=== PATIENT | female | born 1950 | race Caucasian/White ===

== ENCOUNTER → 2023-10-08 14:26 | Outpatient (REF) | payer OTHER, SELFPAY | LOC: MRI 3T 14:26 | PROVIDERS: ATTENDING PHYSICIAN Physician Assistant | DX: M54.16 Radiculopathy, lumbar region (principal) | CPT/HCPCS: 72148 ==

== ENCOUNTER 2024-10-17 21:17 | Emergency (ER) | payer OTHER, SELFPAY ==
[2024-10-17 21:30] VITALS: BP 187/103
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
[2024-10-17 22:01] VITALS: BMI 45.6
[2024-10-17 22:04] VITALS: BP 147/82
[2024-10-17 22:07] LABS: Hematocrit 41.9 % (37.0-47.0); Hemoglobin 13.9 g/dL (12.0-16.0); Mean Corp Hgb Conc. 33.2 g/dL (33.0-37.0); Mean Corpuscular Volume 85.7 fL (81.0-99.0); Nucleated Red Blood Cells % 0 %; Platelet Count 148 10^3/uL (130-400); Red Cell Dist. Width 13.5 % (11.5-14.5)
[2024-10-17] MEDS: NSS 500 IV (22:07)
[2024-10-17] MEDS: ZOFRAN 4 MG IV (22:11)
[2024-10-17 22:30] LABS: ALT (SGPT) 13 U/L (0-35); AST (SGOT) 19 U/L (14-36); Albumin 4.3 g/dl (3.5-5.0); Alkaline Phosphatase 67 U/L (38-126); Blood Urea Nitrogen 20 mg/dl (7-17); Calcium 9.8 mg/dl (8.4-10.2); Carbon Dioxide 29 mmol/L (22-30); Chloride 102 mmol/L (98-107); Estimated Creatinine Clearance 62 ml/min; Glucose 129 mg/dl (70-99); Lipase 89 U/L (23-300); Potassium 4.0 mmol/L (3.5-5.1); Sodium 137 mmol/L (135-145); Total Protein 7.4 g/dl (6.3-8.2); eGFR 53.06
[2024-10-17 22:42] LABS: Troponin I < 0.012 ng/ml
[2024-10-17] MEDS: TYLENOL 650 MG PO (23:03)
[2024-10-18 00:08] VITALS: BP 123/107
[2024-10-18 00:50] LABS: Urine Character Clear (Clear)
[2024-10-18 00:58] LABS: Urine Red Blood Cell 0-2 /HPF (0-2); Urine White Cell None Seen /HPF (0-5)
[2024-10-18 01:00] VITALS: BP 116/72
[2024-10-18 02:20] VITALS: BP 113/67
== END 2024-10-18 02:31 | disposition home or self-care (01) ==
LOC: EMR 21:17
PROVIDERS: Physician Assistant; EMERGENCY PHYSICIAN Emergency Medicine; FAMILY PHYSICIAN Internal Medicine
DX: K52.9 Noninfective gastroenteritis and colitis, unspecified (principal); E03.9 Hypothyroidism, unspecified; E78.00 Pure hypercholesterolemia, unspecified; G47.33 Obstructive sleep apnea (adult) (pediatric); I10 Essential (primary) hypertension; J45.909 Unspecified asthma, uncomplicated; Z59.11 Inadequate housing environmental temperature; Z85.3 Personal history of malignant neoplasm of breast; Z90.13 Acquired absence of bilateral breasts and nipples
CPT/HCPCS: 96374; 96361; 99284; 74177; 80053; 81003; 81015; 83690; 84484; 85025; 87086; 93005; Q9967

== ENCOUNTER 2024-12-14 22:10 | Emergency (ER) | payer OTHER, SELFPAY ==
[2024-12-14 22:15] VITALS: BP 121/81
[2024-12-14 22:47] VITALS: BMI 44.1
[2024-12-14 22:48] LABS: Hematocrit 43.1 % (37.0-47.0); Hemoglobin 14.4 g/dL (12.0-16.0); Mean Corp Hgb Conc. 33.4 g/dL (33.0-37.0); Mean Corpuscular Volume 86.4 fL (81.0-99.0); Nucleated Red Blood Cells % 0 %; Platelet Count 240 10^3/uL (130-400); Red Cell Dist. Width 13.8 % (11.5-14.5)
[2024-12-14 22:57] LABS: ALT (SGPT) 40 U/L (0-35); AST (SGOT) 46 U/L (14-36); Albumin 4.7 g/dl (3.5-5.0); Alkaline Phosphatase 88 U/L (38-126); Blood Urea Nitrogen 18 mg/dl (7-17); Calcium 9.3 mg/dl (8.4-10.2); Carbon Dioxide 26 mmol/L (22-30); Chloride 100 mmol/L (98-107); Glucose 157 mg/dl (70-99); Lipase 99 U/L (23-300); Potassium 4.1 mmol/L (3.5-5.1); Sodium 136 mmol/L (135-145); Total Protein 7.9 g/dl (6.3-8.2); eGFR > 60.00
[2024-12-14] MEDS: ZOFRAN 4 MG IV (23:26)
[2024-12-14] MEDS: OMNIPAQUE 50 ML PO (23:27)
[2024-12-14] MEDS: DILAUDID 1 MG IV (23:27)
[2024-12-14] MEDS: NSS 1000 IV (23:28)
[2024-12-14 23:43] VITALS: BP 161/142
--- NOTE | 2024-12-15 00:08 | ED.GENMED ---
Addendum entered and electronically signed by Vicente Giron, 12/15/24 02:42:
Update patient appears comfortable now additional history patient appears to have chronic abdominal pain she takes Linzess prescribed at Dr. Roberson her GI doctor she lives alone, her sisters gone for the night, at this point no clear indication
for admission, her lactic is up a bit, will hydrate with an eye towards discharge in a few hours when her sister can come and get her
Addendum entered and electronically signed by Vicente Giron, 12/15/24 02:20:
Update, labs noted vision radiology report noted specifically no evidence of bowel obstruction colonic diverticulosis without evidence of acute diverticulitis appendix is normal cholelithiasis without specific findings of acute cholecystitis
Original Note:
History of Present Illness
General
Chief Complaint: Abdominal Pain
Source: patient, records, family, previous radiology exam and previous hospital records
Exam Limitations: none
Time Seen by Provider: 12/14/24 23:10
Nursing documentation reviewed up to this point in time: agreed with
History of Present Illness
History of Present Illness:
74-year-old female presents with abdominal pain nausea moderate to severe intensity reminiscent of her prior bowel obstructions she had gynecologic surgery previously, she has had a prior bowel obstruction treated conservatively, no fever or chills,
she had dry heaves 1 small bowel movement earlier today none since, no chest pain or shortness of breath,
Past History
Past History
ED Past Medical History: Asthma, Cancer (Breast cancer, bilateral mastectomy), GERD, HTN, Hypercholesterolemia, Hypothyroidism, Psychiatric (Depression) and Other (Osteoarthritis, obstructive sleep apnea, small bowel obstructions)
ED Past Surgical History: Gynecological (Hysterectomy 1995), Orthopedic (Left knee replacement 2016, right knee replacement April 2017) and Other (Left lumpectomy with adjuvant radiation for treatment of breast cancer in 1993; bilateral
mastectomy 2017, Right rotator cuff repair Hysterectomy)
Social History
Tobacco: Non-smoker
Alcohol: Occasional
Drug: None
Personal: Single
Living: alone
Employment: Retired
Family History
Family History: CAD
Review of Systems
Review of Systems
All Other Systems: Not applicable
ABD/GI: Reports abdominal pain, nausea and pain; Denies diarrhea or black stools
Phy Exam
Physical Exam
Physical Exam:
Physical Exam
General: 74 female yelling out in pain
Neck: Lips are slightly dry
Heart: s1/s2 regular rate and rhythm, no murmur. equal radial pulses.
Lungs: no acute respiratory distress. clear bilaterally
Abdomen: Distended diffuse pain diminished bowel sounds
Neuro: alert and oriented. no focal neurological deficits
Skin: no rash
Psychiatric: well kept. interactive and cooperative
Extremities: no edema.
Course
Orders/Labs/Results
Orders:
Orders
12/14/24 22:25
Complete Blood Count/With Diff Urgent
Comprehensive Metabolic Panel Urgent
Lactic Acid Urgent
Lipase Urgent
12/14/24 23:17
HYDROmorphone [Dilaudid] 1 mg IV NOW STA
Iohexol [Omnipaque] See Protocol PO NOW STA
Ondansetron Injectable [Zofran] 4 mg IV NOW STA
12/14/24 23:18
Electrocardiogram (*1) Urgent
Reason for Study: Abdominal Pain
EKG- Treatment ONCE
0.9% Sodium Chloride 1000 ml [Nss] 1,000 ml IV BOLUS
12/15/24
CT Abd/pel W Iv And Oral Contr Urgent
Reason For Exam: pain vomitign
Abnormal Lab Results
12/14/24
22:25
Abs Immat Gran (auto) 0.1 H 10^3/uL
(0-0.05)
Absolute Neuts (auto) 7.9 H 10^3/uL
(1.4-6.5)
Immature Gran % 0.6 H %
(0-0.5)
Neutrophils % 79.0 H %
(42.2-75.2)
Lymphocytes % 15.7 L %
(20.5-51.1)
BUN 18 H mg/dl
(7-17)
Glucose 157 H mg/dl
(70-99)
Lactic Acid 3.4 H mmol/L
(0.7-2.0)
AST 46 H U/L
(14-36)
ALT 40 H U/L
(0-35)
12/14/24 22:25
12/14/24 22:25
Vital Signs
Initial and Last Documented VS:
Initial Vital Signs
Pulse Resp BP Pulse Ox
71 16 121/81 97
12/14/24 22:15 12/14/24 22:15 12/14/24 22:15 12/14/24 22:15
Last Documented Vital Signs
Pulse Resp BP Pulse Ox
67 14 121/81 100
12/14/24 23:00 12/14/24 23:00 12/14/24 22:15 12/15/24 00:08
MDM/Problems Addressed
Differential Diagnosis Includes:
Bowel obstruction diverticulitis appendicitis pancreatitis
MDM/Problems Addressed:
Abdominal pain
Chronic conditions affecting care: Previous abdomnial surgery
Acute Exacerbation and/or Progression of Chronic Illness: Previous abdomnial surgery
*Radiology
Radiology exam reviewed: radiology read reviewed
*Pulse Oximetry
SaO2: 100
Oxygen Mode of Delivery: Room air
Patient hypoxic: no
*EKG
Interpreted by ED Provider?: Yes
Interpretation: normal
Comparison EKG: no comparison EKG present
Heart Rate: 60
Rate: normal
Ischemia: no ischemia
*Roving Department Supervisor Interpretation
Rate: normal
Interpretation: normal
Heart Rate: 78
Rhythm: sinus
*Critical Care Note
Total Time (30-74mins, 75-104mins- exclusive of procedures): Not Applicable
ED Attending Note
-
Portions of this chart may have been created with voice recognition software.� Occasional wrong word or��sound alike� substitutions may have occurred due to the inherent limitations of voice recognition software.
Discharge Plan
Departure
Prescriptions:
No Action
sertraline 100 MG tablet
200 mg PO DAILY@1200
levothyroxine [Synthroid] 150 MCG tablet
150 mcg PO DAILY@0700
ezetimibe 10 MG tablet
10 mg PO DAILY@1200
losartan-hydrochlorothiazide 1 TAB tablet
1 tab PO DAILY@1200
Patient Comments:
'I am not sure of this dose.'
simvastatin 80 MG tablet
40 mg PO HS
ondansetron 4 MG tablet,disintegrating
4 mg PO TIDPRN PRN (Reason: Nausea) Qty: 12 0RF
ondansetron 4 mg tablet,disintegrating
4 mg PO Q6H PRN (Reason: nausea and vomiting) Qty: 10 0RF
Referrals:
Jj Wiley MD [Family Provider]
Interventions
Interventions:
*Risk Screen - Suicide Last Done: 12/14/24 22:47
*General Assessment Last Done: 12/14/24 22:47
*Neglect/Abuse Screening Last Done: 12/14/24 22:47
*ED- Fall Risk Assessment Last Done: 12/14/24 22:47
*ED COVID-19 Vaccine History Last Done: 12/14/24 22:47
OL-Lyrbhr-Ruikebiogd Assessment Last Done: 12/14/24 22:47
Discharge Date and Time
Print Language: MOHAWK
[2024-12-15 00:30] VITALS: BP 197/102
[2024-12-15] MEDS: DILAUDID 1 MG IV (02:14)
--- NOTE | 2024-12-15 02:17 | ED.GENMED ---
History of Present Illness
General
Chief Complaint: Abdominal Pain
Time Seen by Provider: 12/14/24 23:10
Past History
Past History
ED Past Medical History: Asthma, Cancer (Breast cancer, bilateral mastectomy), GERD, HTN, Hypercholesterolemia, Hypothyroidism, Psychiatric (Depression) and Other (Osteoarthritis, obstructive sleep apnea, small bowel obstructions)
ED Past Surgical History: Gynecological (Hysterectomy 1995), Orthopedic (Left knee replacement 2016, right knee replacement April 2017) and Other (Left lumpectomy with adjuvant radiation for treatment of breast cancer in 1993; bilateral
mastectomy 2017, Right rotator cuff repair Hysterectomy)
Social History
Tobacco: Non-smoker
Alcohol: Occasional
Drug: None
Personal: Single
Living: alone
Employment: Retired
Family History
Family History: CAD
Course
Orders/Labs/Results
Orders:
Orders
12/14/24 22:25
Complete Blood Count/With Diff Urgent
Comprehensive Metabolic Panel Urgent
Lactic Acid Urgent
Lipase Urgent
12/14/24 23:17
HYDROmorphone [Dilaudid] 1 mg IV NOW STA
Iohexol [Omnipaque] See Protocol PO NOW STA
Ondansetron Injectable [Zofran] 4 mg IV NOW STA
12/14/24 23:18
Electrocardiogram (*1) Urgent
Reason for Study: Abdominal Pain
EKG- Treatment ONCE
0.9% Sodium Chloride 1000 ml [Nss] 1,000 ml IV BOLUS
12/15/24
CT Abd/pel W Iv And Oral Contr Urgent
Reason For Exam: pain vomitign
12/15/24 02:11
HYDROmorphone [Dilaudid] 1 mg IV NOW STA
Abnormal Lab Results
12/14/24
22:25
Abs Immat Gran (auto) 0.1 H 10^3/uL
(0-0.05)
Absolute Neuts (auto) 7.9 H 10^3/uL
(1.4-6.5)
Immature Gran % 0.6 H %
(0-0.5)
Neutrophils % 79.0 H %
(42.2-75.2)
Lymphocytes % 15.7 L %
(20.5-51.1)
BUN 18 H mg/dl
(7-17)
Glucose 157 H mg/dl
(70-99)
Lactic Acid 3.4 H mmol/L
(0.7-2.0)
AST 46 H U/L
(14-36)
ALT 40 H U/L
(0-35)
12/14/24 22:25
12/14/24 22:25
Vital Signs
Initial and Last Documented VS:
Initial Vital Signs
Pulse Resp BP Pulse Ox
71 16 121/81 97
12/14/24 22:15 12/14/24 22:15 12/14/24 22:15 12/14/24 22:15
Last Documented Vital Signs
Pulse Resp BP Pulse Ox
67 14 121/81 100
12/14/24 23:00 12/14/24 23:00 12/14/24 22:15 12/15/24 00:08
*Pulse Oximetry
SaO2: 100
Oxygen Mode of Delivery: Room air
Update Note
Update Note:
2:20 AM
Update, labs noted CT report noted
Specifically no evidence of bowel obstruction normal appendix diverticulosis without evidence of diverticulitis cholelithiasis without findings of acute cholecystitis
ED Attending Note
-
Portions of this chart may have been created with voice recognition software.� Occasional wrong word or��sound alike� substitutions may have occurred due to the inherent limitations of voice recognition software.
Discharge Plan
Departure
Prescriptions:
No Action
sertraline 100 MG tablet
200 mg PO DAILY@1200
levothyroxine [Synthroid] 150 MCG tablet
150 mcg PO DAILY@0700
ezetimibe 10 MG tablet
10 mg PO DAILY@1200
losartan-hydrochlorothiazide 1 TAB tablet
1 tab PO DAILY@1200
Patient Comments:
'I am not sure of this dose.'
simvastatin 80 MG tablet
40 mg PO HS
ondansetron 4 MG tablet,disintegrating
4 mg PO TIDPRN PRN (Reason: Nausea) Qty: 12 0RF
ondansetron 4 mg tablet,disintegrating
4 mg PO Q6H PRN (Reason: nausea and vomiting) Qty: 10 0RF
Referrals:
Jj Wiley MD [Family Provider]
Interventions
Interventions:
*Risk Screen - Suicide Last Done: 12/14/24 22:47
*General Assessment Last Done: 12/14/24 22:47
*Neglect/Abuse Screening Last Done: 12/14/24 22:47
*ED- Fall Risk Assessment Last Done: 12/14/24 22:47
*ED COVID-19 Vaccine History Last Done: 12/14/24 22:47
XI-Miffir-Krqksqtgny Assessment Last Done: 12/14/24 22:47
Discharge Date and Time
Print Language: URDU
[2024-12-15 02:18] VITALS: BP 133/115
[2024-12-15 02:30] VITALS: BP 132/72
[2024-12-15 03:15] VITALS: BP 97/50
[2024-12-15 04:00] VITALS: BP 148/72
[2024-12-15 04:45] VITALS: BP 134/63
--- NOTE | 2024-12-15 05:15 | EDRN ---
pt informed she needs to follow up with gastro after discharge.
== END 2024-12-15 05:45 | disposition home or self-care (01) ==
LOC: EMR 22:10
PROVIDERS: Emergency Medicine; EMERGENCY PHYSICIAN Emergency Medicine; FAMILY PHYSICIAN Internal Medicine
DX: R10.9 Unspecified abdominal pain (principal); G89.29 Other chronic pain; K57.30 Diverticulosis of large intestine without perforation or abscess without bleeding; K80.20 Calculus of gallbladder without cholecystitis without obstruction; I10 Essential (primary) hypertension; E78.00 Pure hypercholesterolemia, unspecified; J45.909 Unspecified asthma, uncomplicated; G47.33 Obstructive sleep apnea (adult) (pediatric); E03.9 Hypothyroidism, unspecified; K21.9 Gastro-esophageal reflux disease without esophagitis; F32.A Depression, unspecified; M19.90 Unspecified osteoarthritis, unspecified site; Z85.3 Personal history of malignant neoplasm of breast; Z90.13 Acquired absence of bilateral breasts and nipples; Z96.653 Presence of artificial knee joint, bilateral; Z82.49 Family history of ischemic heart disease and other diseases of the circulatory system
CPT/HCPCS: 99284; 96374; 96375; 96376; 96361; 74177; 80053; 83605; 83690; 85025; 93005; Q9967

== ENCOUNTER 2024-12-15 17:20 | Day surgery (SDC) | payer OTHER, SELFPAY ==
[2024-12-15 11:30] VITALS: BP 162/95
[2024-12-15] MEDS: MORPHINE SULFATE 4 MG IV ×2 (12:13→16:00)
[2024-12-15] MEDS: ZOFRAN 4 MG IV (12:13)
[2024-12-15] MEDS: NSS 1000 IV (12:13)
[2024-12-15 12:23] LABS: Urine Character Clear (Clear)
[2024-12-15 12:25] LABS: Hematocrit 42.0 % (37.0-47.0); Hemoglobin 14.0 g/dL (12.0-16.0); Mean Corp Hgb Conc. 33.3 g/dL (33.0-37.0); Mean Corpuscular Volume 86.8 fL (81.0-99.0); Nucleated Red Blood Cells % 0 %; Platelet Count 207 10^3/uL (130-400); Red Cell Dist. Width 14.0 % (11.5-14.5)
[2024-12-15 12:36] LABS: Urine Red Blood Cell 0-2 /HPF (0-2); Urine White Cell 0-2 /HPF (0-5)
[2024-12-15 12:41] LABS: ALT (SGPT) 33 U/L (0-35); AST (SGOT) 30 U/L (14-36); Albumin 4.6 g/dl (3.5-5.0); Alkaline Phosphatase 74 U/L (38-126); Blood Urea Nitrogen 14 mg/dl (7-17); Calcium 8.8 mg/dl (8.4-10.2); Carbon Dioxide 28 mmol/L (22-30); Chloride 97 mmol/L (98-107); Estimated Creatinine Clearance 75 ml/min; Glucose 119 mg/dl (70-99); Lipase 85 U/L (23-300); Potassium 4.0 mmol/L (3.5-5.1); Sodium 134 mmol/L (135-145); Total Protein 8.0 g/dl (6.3-8.2); eGFR > 60.00
--- NOTE | 2024-12-15 12:49 | ED.GENMED ---
History of Present Illness
General
Chief Complaint: Abdominal Symptoms
Time Seen by Provider: 12/15/24 11:34
History of Present Illness
History of Present Illness:
74-year-old with history of hypertension, hyperlipidemia, partial small bowel obstruction presenting for continued abdominal pain. Patient reports pain to the abdomen for the past 3 days. Reports that last bowel movement was yesterday, however
very small and pain feels very similar to prior bowel obstructions. Denies history of bowel surgeries. Notes that she came to the hospital last evening, had unremarkable workup and was sent home, however pain has been persistent. She had episode
of vomiting this morning. Reports surgical history of hysterectomy. Denies fever. Denies urinary complaints or additional acute medical complaint
Past History
Past History
ED Past Medical History: Asthma, Cancer (Breast cancer, bilateral mastectomy), GERD, HTN, Hypercholesterolemia, Hypothyroidism, Psychiatric (Depression) and Other (Osteoarthritis, obstructive sleep apnea, small bowel obstructions)
ED Past Surgical History: Gynecological (Hysterectomy 1995), Orthopedic (Left knee replacement 2016, right knee replacement April 2017) and Other (Left lumpectomy with adjuvant radiation for treatment of breast cancer in 1993; bilateral
mastectomy 2016, Right rotator cuff repair Hysterectomy)
Social History
Tobacco: Non-smoker
Alcohol: Occasional
Drug: None
Personal: Single
Living: alone
Employment: Retired
Family History
Family History: CAD
Phy Exam
Physical Exam
Physical Exam:
General: Well-appearing, no clinical signs of dehydration, nontoxic and in no acute distress
HEENT: protecting airway
Neck: appears supple
CV: Normal heart rate, regular rhythm
Resp: No accessory muscle use, no increased work of breathing
Abd: Obese abdomen without distention. Generalized tenderness without rebound or guarding
Extremities: No deformities, no swelling
Neuro: alert, no focal neurologic deficit
: deferred
Rectal: deferred
Psych: Normal affect
Skin: Intact
Course
Orders/Labs/Results
Orders:
Orders
12/15/24 11:54
0.9% Sodium Chloride 1000 ml [Nss] 1,000 ml IV BOLUS
Morphine Sulfate 4 mg IV NOW STA
Ondansetron Injectable [Zofran] 4 mg IV NOW STA
12/15/24 11:55
CT Abd/pelvis W Iv Cont Urgent
Comment:
Reason For Exam: worsening abd pain, hx of SBO
12/15/24 12:09
Complete Blood Count/With Diff Urgent
Comprehensive Metabolic Panel Urgent
Lipase Urgent
12/15/24 12:16
Urinalysis Reflex To Culture Urgent
Date Specimen was Collected: 12/15/24
Time Specimen was Collected: 12:11
Urine Microscopic Reflex Cult Urgent
12/15/24 15:36
Morphine Sulfate 4 mg IV NOW STA
Abnormal Lab Results
12/15/24 12/15/24
12:09 12:16
Abs Immat Gran (auto) 0.1 H 10^3/uL
(0-0.05)
Absolute Neuts (auto) 8.6 H 10^3/uL
(1.4-6.5)
Absolute Lymphs (auto) 0.8 L 10^3/uL
(1.2-3.4)
Absolute Monos (auto) 0.8 H 10^3/uL
(0.1-0.6)
Neutrophils % 84.1 H %
(42.2-75.2)
Lymphocytes % 7.4 L %
(20.5-51.1)
Sodium 134 L mmol/L
(135-145)
Chloride 97 L mmol/L
(98-107)
Glucose 119 H mg/dl
(70-99)
Ur Occult Blood Reflex 1+ A
(Negative)
Urine Albumin (Reflex) 1+ A
(Neg - Trace)
12/15/24 12:09
12/15/24 12:09
Vital Signs
Initial and Last Documented VS:
Initial Vital Signs
Temp Pulse Resp BP Pulse Ox
97.8 F 70 22 162/95 98
12/15/24 11:30 12/15/24 11:30 12/15/24 11:30 12/15/24 11:30 12/15/24 11:30
Last Documented Vital Signs
Temp Pulse Resp BP Pulse Ox
97.8 F 65 7 162/95 95
12/15/24 11:30 12/15/24 11:45 12/15/24 11:45 12/15/24 11:30 12/15/24 12:53
MDM/Problems Addressed
MDM/Problems Addressed:
74-year-old female with history of hypertension, hyperlipidemia, partial small bowel obstruction presenting for worsening abdominal pain. Vital signs significant for high blood pressure.
On exam patient is in no acute distress. Generalized nonfocal tenderness. On review of EMR, patient seen in the hospital yesterday with relatively unremarkable workup including CT abdomen pelvis. Patient was only able to tolerate small portion of
oral contrast due to her symptoms. No acute pathology seen, no bowel obstruction seen. Patient sent home, however notes that pain has been worsening with continued vomiting. She notes that pain feels very similar to prior obstructions. Given
this information, will repeat laboratory analysis and imaging to ensure no developing obstruction. Morphine administered for pain and Zofran for nausea
15:30-patient CT without any acute changes. Patient reports that she is feeling no better. At this time plan for admission for continued supportive therapy, intractable abdominal pain.
*Pulse Oximetry
SaO2: 95
Oxygen Mode of Delivery: Room air
Patient hypoxic: no
*Critical Care Note
Total Time (30-74mins, 75-104mins- exclusive of procedures): Not Applicable
ED Attending Note
-
Portions of this chart may have been created with voice recognition software.� Occasional wrong word or��sound alike� substitutions may have occurred due to the inherent limitations of voice recognition software.
Discharge Plan
Departure
Prescriptions:
No Action
sertraline 100 MG tablet
200 mg PO DAILY@1200
levothyroxine [Synthroid] 150 MCG tablet
150 mcg PO DAILY@0700
ezetimibe 10 MG tablet
10 mg PO DAILY@1200
losartan-hydrochlorothiazide 1 TAB tablet
1 tab PO DAILY@1200
Patient Comments:
'I am not sure of this dose.'
simvastatin 80 MG tablet
40 mg PO HS
ondansetron 4 MG tablet,disintegrating
4 mg PO TIDPRN PRN (Reason: Nausea) Qty: 12 0RF
ondansetron 4 mg tablet,disintegrating
4 mg PO Q6H PRN (Reason: nausea and vomiting) Qty: 10 0RF
Referrals:
Jj Wiley MD [Family Provider]
Interventions
Interventions:
*Risk Screen - Suicide Last Done: 12/15/24 11:30
*General Assessment Last Done: 12/15/24 11:30
*Neglect/Abuse Screening Last Done: 12/15/24 11:30
*ED- Fall Risk Assessment Last Done: 12/15/24 11:30
*ED COVID-19 Vaccine History Last Done: 12/15/24 11:30
ZT-Xqlpca-Pgqdfipzoz Assessment Last Done: 12/15/24 11:44
Discharge Date and Time
Print Language: INDIAN
[2024-12-15 13:00] VITALS: BP 157/93
[2024-12-15 16:01] VITALS: BP 148/77
--- NOTE | 2024-12-15 16:04 | HPS.HSE ---
Addendum entered and electronically signed by Mouna Gayle MD 12/15/24 21:55:
This is an addendum to H&P written by [employer] on 12/15/2024. �Patient seen and examined independently with [employer] [facility].
74-year-old male past medical history of small obstruction, hypertension, hypercholesteremia, hypothyroidism, anxiety/depression, obstructive sleep apnea on CPAP, presenting with abdominal pain for the past few days associate with vomiting and
fevers and chills at home.� Occurred after eating sandwich day prior. No diarrhea.
Vital signs normal. �Labs unremarkable. �CT abdomen pelvis showed no acute findings within the abdomen or pelvis. �No evidence of small bowel obstruction.
Unclear etiology of abdominal pain. �Possible patient has viral gastroenteritis. �Full liquid diet, advance as tolerated. �Pain improved with morphine.
Original Note:
Family Physician
-
Family Physician: Jj Wiley
Chief Complaint
-
abdominal pain, nausea and vomiting
History of Present Illness
Patient is a 74-year-old female with past medical history significant for hypertension, hypercholesterolemia, hypothyroid, depression/anxiety and KERRY on CPAP who presented to [facility] ED for evaluation of abdominal pain, nausea and vomiting. Patient
states the last few days are a blur and unsure exactly when pain started but she thinks Saturday night into Saturday morning. She states pain has been consistent with some nausea and vomiting. Reports last normal bowel movement was Saturday and she had
a small one yesterday. She feels pain is similar to previous SBO. She also reports fever and chills at home. Denies cough, shortness of breath, chest pain or diarrhea.
Medical History
Past Medical History
Past Medical History: Reports Other
Additional Past Medical History:
hypertension
hypercholesterolemia
hypothyroid
depression/anxiety
KERRY on CPAP
Hx SBO
Past Surgical History: Reports Other
Additional Past Surgical History:
bilateral mastectomy
bunionectomy
hysterectomy
myomectomy
left total knee DOS 03/06/17 ([facility])
Right total knee 05/22/17 ([facility])
tendon transfer right ankle
left rotator cuff repair
Social History
Tobacco: Former Smoker
Alcohol: Occasional
Drug: None
Living: Alone
Employment: Retired
Family History
Family History: Other (Father: CAD; Mother: breast cancer; brother: CVA; Sister: SBO )
Allergies / Home Medications
Allergies reflects when Allergies were last updated in [facility].
Home Medications with original date entered in [facility]
Allergy/Medication List:
Allergies
Allergy/AdvReac Type Severity Reaction Status Date / Time
No Known Allergies Allergy Verified 12/15/24 11:30
Home Medications
ezetimibe 10 mg tablet 10 mg PO DAILY@119908/01/09
sertraline 100 mg tablet 200 mg PO DAILY@119908/01/09
simvastatin 80 mg tablet 40 mg PO HS 02/12/17
albuterol sulfate 90 mcg/actuation aerosol inhaler 2 inh inhalation Q6HPRN PRN wheezing 12/15/24
hydrochlorothiazide 12.5 mg tablet 12.5 mg PO DAILY@119912/15/24
levothyroxine 137 mcg tablet 137 mcg PO DAILY@0700 12/15/24
linaclotide 72 mcg capsule (Linzess) 72 mcg PO DAILY@119912/15/24
losartan 50 mg tablet 50 mg PO DAILY@119912/15/24
trazodone 100 mg tablet 150 mg PO HS 12/15/24
Review of Systems
-
History Source: Patient
Constitutional: Reports Fever and Chills
EENT: Denies Sore Throat
Respiratory: Denies Cough or Trouble Breathing
Cardiac: Denies Chest Pain, Diaphoresis, Palpitations or Syncope
Abdomen/GI: Reports Abdominal Pain, Nausea and Vomiting; Denies Diarrhea
: Denies Dysuria, Frequency, Incontinence, Difficulty Voiding or Urgency
Musculoskeletal: Reports No Symptoms
Skin: Denies Rash
Neurological: Denies Dizzy, Headache, Weakness or Numbness
Endocrine: Reports No Symptoms
Hematologic/Lymphatic: Reports No Symptoms
Psych: Reports No Symptoms
Physical Exam
Vital Signs
Vital Signs
Temp Pulse Resp BP Pulse Ox
97.8 F 60 13 157/93 95
12/15/24 11:30 12/15/24 15:30 12/15/24 15:30 12/15/24 13:00 12/15/24 15:30
Physical Exam
General: No Apparent Distress, Comfortable, Conversant and Morbidly Obese
HEENT: NormoCephalic, Moist mucous membranes and Atraumatic
Respiratory: Clear and Non Labored Respirations; No Wheezes, Rales, Rhonchi or Crackles
Cardiac: S1/S2 and Regular Rhythm; No Murmur, Rub or Gallop
Breast: Deferred by me
GI: Soft, Non Tender, Non Distended and Normal Bowel Sounds; No Organomegaly
Rectal: Deferred by Provider
Genito-urinary: Deferred by me
Musculoskeletal: No Clubbing, No Cyanosis and No Edema
Skin: Warm and IV/Catheter Site; No Rash
Neuro: Awake, AO x 3 and Nonfocal/grossly intact
Hematologic/Lymphatic: No Lymphadenopathy
Psych: Calm
Laboratory Results
-
12/15/24 12:09
12/15/24 12:09
Laboratory Results
Total Bilirubin 0.9 mg/dl (0.2-1.3) 12/15/24 12:09
AST 30 U/L (14-36) 12/15/24 12:09
ALT 33 U/L (0-35) 12/15/24 12:09
Alkaline Phosphatase 74 U/L (38-126) 12/15/24 12:09
Lipase 85 U/L (23-300) 12/15/24 12:09
Data Reviewed
-
CT Scan: Report Reviewed by me (Abd/pel: 1. No acute findings within the abdomen and pelvis. 2. No evidence for small bowel obstruction. Unremarkable appendix. No free fluid within the abdomen or pelvis. 3. Cholelithiasis. 4. Additional
findings above.)
Lab Data: Labs Reviewed by me
Impression/Plan
-
IMPRESSION/PLAN:
#abdominal pain, nausea and vomiting likely 2/2 enteritis
Abd/Pel CT: 1. No acute findings within the abdomen and pelvis.
2. No evidence for small bowel obstruction. Unremarkable appendix. No free fluid within the abdomen or pelvis.
3. Cholelithiasis.
4. Additional findings above.
- Admit to med/surg
- full liquids advance as tolerated
- supportive care
#hypertension
- continue HCTZ and losartan
#hypercholesterolemia
- continue ezetimibe and simvastatin
#hypothyroid
- continue levothyroxine
#depression/anxiety
- continue sertraline and trazodone
Code status: full code
DVT prophylaxis: Lovenox sq
--- NOTE | 2024-12-15 17:30 | CM ---
CM reviewed chart and met with pt bedside in ED. Lives alone, 2 story home, 1 [address], first floor half bath, full flight to second floor bedroom and full bath.
Independent in ADLs, personal care and ambulation at baseline. No assistive device but has cane and walker. Still driving.
DAVID reviewed and signed.
Confirms prescription coverage.
PCP: Jj Wiley
Pharmacy: [facility] and [facility]
Anticipate discharge home, CM will continue to follow for any discharge planning needs.
[2024-12-15 19:30] VITALS: BP 147/82; BMI 43.4
[2024-12-15] MEDS: LOVENOX 40 MG SC (20:20)
[2024-12-15] MEDS: MORPHINE SULFATE 2 MG IV (20:21)
[2024-12-15] MEDS: DESYREL 150 MG PO (21:31)
[2024-12-15] MEDS: LIPITOR 20 MG PO (21:31)
--- NOTE | 2024-12-15 21:55 | PTCARENOTE ---
Pt. arrived to unit from ED via stretcher. Pt. ambulated from stretcher to bed in room 319-2 on . Pt. AAOx3 and able to make needs known. Oriented to unit. Call cheema within reach. Plan of care ongoing.
[2024-12-15 23:00] VITALS: BP 101/57
[2024-12-16] MEDS: SYNTHROID 137 MCG PO (05:34)
[2024-12-16 07:22] VITALS: BP 120/71
[2024-12-16 07:28] LABS: Hematocrit 37.8 % (37.0-47.0); Hemoglobin 12.6 g/dL (12.0-16.0); Mean Corp Hgb Conc. 33.3 g/dL (33.0-37.0); Mean Corpuscular Volume 87.7 fL (81.0-99.0); Platelet Count 151 10^3/uL (130-400); Red Cell Dist. Width 14.0 % (11.5-14.5)
[2024-12-16 07:38] LABS: Blood Urea Nitrogen 13 mg/dl (7-17); Calcium 8.2 mg/dl (8.4-10.2); Carbon Dioxide 28 mmol/L (22-30); Chloride 103 mmol/L (98-107); Estimated Creatinine Clearance 82 ml/min; Glucose 92 mg/dl (70-99); Potassium 3.9 mmol/L (3.5-5.1); Sodium 137 mmol/L (135-145); eGFR > 60.00
[2024-12-16] MEDS: MORPHINE SULFATE 2 MG IV (10:46)
[2024-12-16] MEDS: COZAAR 50 MG PO (12:41)
[2024-12-16] MEDS: ORETIC 12.5 MG PO (12:42)
[2024-12-16] MEDS: ZOLOFT 200 MG PO (12:42)
[2024-12-16] MEDS: ZETIA 10 MG PO (12:42)
[2024-12-16] MEDS: TYLENOL 650 MG PO ×2 (12:47→20:18)
[2024-12-16] MEDS: LINZESS 72 MCG PO (13:15)
--- NOTE | 2024-12-16 14:02 | CM ---
Patient seen at bedside with physician on . Patient c/o of continued pain and plan is for consult for GI assessment per physician. Patient plan for discharge is home with family supports. CM will continue to follow for discharge planning needs.
Plan; home with no needs vs home with VN; pending medical treatment plan.
--- NOTE | 2024-12-16 15:05 | CON.GI ---
Addendum entered and electronically signed by Fela Goldman Do, MD 12/17/24 12:46:
I saw and evaluated the patient. I reviewed the resident�s note and agree with findings and plan as documented in the resident�s note.
Meredith is a 74yo W with h/o IBS-C, remote pSBO, and KERRY who presents for 1 wk of epigastric to diffuse abd pain. She did admit to forgetting her linzess doses recently. She feels there is associated nausea, heartburn and regurgitation. She
denies any triggers such as new diet, nsaid or ETOH use. She does have BMs but not fully evacuating. Vitals stable exam obese mild distress obese abd TTP epigastric area. 2+ LE swelling. Labs reviewed without anemia and LFTs normalized.
Impression
- Epigastric abd pain
suspect GERD, dyspepsia or PUD. Other consideration is IBS-C flare
- Obesity
- h/o pSBO
- IBS-C
- HTN
- KERRY
- Hyperlipidemia
Recommendations
- EGD with bx
- C/w PPI BID
- Increase linzess to 290mcg
- C/w carafate
- NPO for now anticipate diet post EGD
- If EGD not diagnostic and pain persists can consider HIDA
Will follow with you
Original Note:
Consultation
-
Date/Time Consultation Requested: 12/16/2024
Date/Time Consultation Performed: 12/16/2024
Requesting Provider: Raquel Bender MD
Performing Provider: Fela Farmer MD; Naveed Jennings MD
Reason for Consultation: severe abdominal pain
Medical History
Chief Complaint / HPI
Chief Complaint: abdominal pain
History of Present Illness:
74 yo F PMH HTN, HLD, partial SBO, hypothyroidism, KERRY on CPAP, who presenting with severe abdominal pain for approximately 3-4 days duration. She describes it as initially all over but now most prominent near RUQ, RMQ.
She did present to the ED 1 day prior with similar symptoms but negative workup and was discharged home from ED.Of note, her lactic acid from 12/14-12/15 was 3.4 then decreased to 1.3 on repeat.
She represents today with abdominal pain. Some nausea and dry heaving, no changes to bowel movements that she appreciates. She denies having good appetite.
Remote PSH of hsyterectomy in 1993 and she has since experienced SBOs, last episode however was > 10 years ago. This admission she reports that she is not as nauseated or vomiting, but pain is more severe.
She is passing flatus. Her last meal was a few days ago.
She denies any dysuria. denies headaches, chest pain, dyspnea, focal weakness.
Past Medical History
Past Medical History: Other ( Asthma, Cancer (Breast cancer, bilateral mastectomy), GERD, HTN, Hypercholesterolemia, Hypothyroidism, Psychiatric (Depression) and (Osteoarthritis, obstructive sleep apnea, small bowel obstructions)
Past Surgical History: Other (Gynecological (Hysterectomy 1995), Orthopedic (Left knee replacement 2016, right knee replacement April 2017) and (Left lumpectomy with adjuvant radiation for treatment of breast cancer in 1993; bilateral mastectomy
2016, Right rotator cuff repair Hysterectomy))
Social History
Tobacco: Non-Smoker
Alcohol: Occasional
Drug: None
Personal: Single
Living: Alone
Employment: Retired (worked for [employer])
Family History
Family History: CAD
Allergies / Home Medications
Allergy/AdvReac Type Severity Reaction Status Date / Time
No Known Allergies Allergy Verified 12/15/24 11:30
�Medication �Instructions �Recorded
ezetimibe 10 mg tablet 10 mg PO DAILY@1200 High 08/01/09
Cholesterol
sertraline 100 mg tablet 200 mg PO DAILY@1200 Depression 08/01/09
simvastatin 80 mg tablet 40 mg PO HS High Cholesterol 02/12/17
albuterol sulfate 90 mcg/actuation 2 inh inhalation Q6HPRN PRN 12/15/24
aerosol inhaler wheezing
hydrochlorothiazide 12.5 mg tablet 12.5 mg PO DAILY@1200 Blood 12/15/24
Pressure
levothyroxine 137 mcg tablet 137 mcg PO DAILY@0700 Thyroid 12/15/24
linaclotide 72 mcg capsule 72 mcg PO DAILY@1200 12/15/24
(Linzess) Gastrointestinal Issue
losartan 50 mg tablet 50 mg PO DAILY@1200 Blood Pressure 12/15/24
trazodone 100 mg tablet 150 mg PO HS Sleep 12/15/24
Review of Systems
-
History Source: Patient
Constitutional: Reports No Symptoms
EENT: Reports No Symptoms
Respiratory: Reports No Symptoms
Cardiac: Reports No Symptoms
Abdomen/GI: Reports Abdominal Pain (all over, sometimes epigastric and RUQ, RMQ) and Nausea
: Reports No Symptoms
Musculoskeletal: Reports No Symptoms
Skin: Reports No Symptoms
Neurological: Reports No Symptoms
Vital Signs
Temp Pulse Resp BP Pulse Ox
98.3 F 70 18 141/73 97
12/16/24 07:22 12/16/24 12:41 12/16/24 07:22 12/16/24 12:41 12/16/24 12:00
Physical Exam
Exam
General: Other (in some distress)
HEENT: Normocephalic and Anicteric
Respiratory: Clear (on my exam)
Cardiac: Other (no murmurs on my exam)
GI: Normal Bowel Sounds (hypoactive bowel sounds on my exam) and Tender (most tender in RUQ on my exam)
Genito-urinary: No Costovertebral Tender
Musculoskeletal: No Edema
Skin: Warm
Neuro: AO x 3 and No Motor Deficits
Psych: Calm
Results
WBC 6.7 10^3/uL (4.8-10.8) 12/16/24 06:40
Hgb 12.6 g/dL (12.0-16.0) 12/16/24 06:40
Hct 37.8 % (37.0-47.0) 12/16/24 06:40
MCV 87.7 fL (81.0-99.0) 12/16/24 06:40
Plt Count 151 10^3/uL (130-400) D 12/16/24 06:40
Absolute Neuts (auto) 8.6 10^3/uL (1.4-6.5) H 12/15/24 12:09
Sodium 137 mmol/L (135-145) 12/16/24 06:40
Potassium 3.9 mmol/L (3.5-5.1) 12/16/24 06:40
Chloride 103 mmol/L (98-107) 12/16/24 06:40
Carbon Dioxide 28 mmol/L (22-30) 12/16/24 06:40
BUN 13 mg/dl (7-17) 12/16/24 06:40
Creatinine 0.8 mg/dL (0.6-1.0) 12/16/24 06:40
Calcium 8.2 mg/dl (8.4-10.2) L 12/16/24 06:40
Total Bilirubin 0.9 mg/dl (0.2-1.3) 12/15/24 12:09
AST 30 U/L (14-36) 12/15/24 12:09
ALT 33 U/L (0-35) 12/15/24 12:09
Alkaline Phosphatase 74 U/L (38-126) 12/15/24 12:09
Lipase 85 U/L (23-300) 12/15/24 12:09
Diagnostic Image Results:
12/15/2024: 11:55
CT Abdomen/pelvis
IMPRESSION:
1. No acute findings within the abdomen and pelvis.
2. No evidence for small bowel obstruction. Unremarkable appendix. No free fluid within the abdomen or pelvis.
3. Cholelithiasis.
4. Additional findings above.
12/14/2024:
IMPRESSION:
1. No acute findings within the abdomen or pelvis. Negative for bowel obstruction.
2. Nonspecific mild periportal edema.
3. Cholelithiasis.
4. Mild sigmoid diverticulosis.
5. Additional findings above.
Prior GI Procedures:
Colonoscopy:
07/30/2013
Impression: - One 10 mm polyp in the cecum. Resected and retrieved.
- Non-bleeding internal hemorrhoids.
- The examination was otherwise normal on direct and
retroflexion views.
Assessment / Plan
-
In summary, 74 yo F PMH HTN, HLD, partial SBOs, hypothyroidism p/w abdominal pain, most prominently in RUQ, RMQ (during my interview).
# RUQ, RMQ & diffuse abdominal pain
- patient reported pain that is diffuse, and then now more in RUQ, RMQ.
- she is presenting to ED 2x in past 2 days[address]
- CT showed cholelithiasis but no evidence of cholecystitis.
- the ddx for abdominal pain can include cholecystitis, biliary colic, pancreatitis, bowel obstruction, mesenteric ischemia, irritable bowel syndrome, GERD, nephrolithiasis
- For her, the RUQ pain may localize to gallbladder pathology. No evidence of cholecystitis on CT, but RUQ US may better evaluate.
- LFTs were within normal limits
- Lipase within normal limits (85)
- electrolytes largely within normal limits
- the intermittent nature of the pain that waxes/wanes (on my interview) is puzzling. Could it be an waxing/waning SBO that is intermittent.
- She does report severe pain, and if this is deemed pain out of proportion to exam, mesenteric ischemia can also be considered.
- She has history of HLD, lactic acid on prior ED admission (12/14/2024) had trend 3.4 to 1.3
- consider repeat lactic acid
- two negative CT for SBOs makes a bowel obstruction unlikely, unless the obstruction is transient and or resolves on its own with peristalsis? However, this seems unlikely
- Her last colonoscopy was in 2014 which was largely unremarkable per the documentation. If an occult malignancy has developed, perhaps there is role for scope.
- she is on linaclotide, which is used to treat constipation, or IBS-C.
- She does report heartburn over the past few days, consider PPI
- nephrolithiasis: CT A/P was with IV contrast, not ideal to evaluate for nephrolithiasis but no CVA tenderness and no urinary symptoms reported by her, so appears less likely.
Plan:
- monitor and replete electrolytes as needed
- pain control with morphine prn
- Currently on full liquid diet, assess how she tolerates
- consider pantoprazole IV
- Consider RUQ US
- consider repeat lactic acid
-
-
Thank you for consultation and allowing me to participate in the patient's care. Please call the [facility] GI physician during the after hours with any questions or concerns.
[2024-12-16 15:08] VITALS: BP 116/78
--- NOTE | 2024-12-16 15:33 | W.PN.HOSP.TC ---
Today's Communication/Plan
-
consult GI
consideration for HIDA scan? vs EGD
Assessment / Plan
Assessment / Plan
pt is a 74 year old female
abdominal pain, nausea and vomiting--CT scan with no acute findings, no obstruction--lipase normal--? PUD vs gallbladder?-- full liquids advance as tolerated--consult GI
Essential hypertension- continue HCTZ and losartan
HLD- continue ezetimibe and simvastatin
hypothyroidism- continue levothyroxine
depression/anxiety-- continue sertraline and trazodone
DVT proph
Code status--FULL CODE
Anticipated Discharge: 24 - 48 hours
Subjective/Interval History
-
Date of Service: December 16, 2024
pt c/o severe midepigastric pain
Objective Data
-
Labs:
Laboratory Results
12/16/24
06:40
WBC 6.7
Hgb 12.6
Hct 37.8
Plt Count 151 D
Sodium 137
Potassium 3.9
Chloride 103
Carbon Dioxide 28
BUN 13
Creatinine 0.8
Glucose 92
Calcium 8.2 L
Vital Signs:
max temp for 24 hours
12/16/24
07:22
Temp 98.3 F
Vital Signs
Temp Pulse Resp BP Pulse Ox
98.6 F 70 18 116/78 96
12/16/24 15:08 12/16/24 15:08 12/16/24 15:08 12/16/24 15:08 12/16/24 15:08
I&O
12/15/24 12/16/24 12/17/24
06:59 06:59 06:59
Intake Total 240 / 240
Balance 240 / 240
Review of Systems
-
All other systems: Reviewed and negative
Abdomen/GI: Reports Abdominal Pain, Nausea and Vomiting
Physical Exam
-
General: Well Developed, Well Nourished and Morbidly Obese; Negative Comfortable
HEENT: Normocephalic and Atraumatic; Negative Oxygen
Respiratory: Clear to Auscultation; Negative Wheezes or Rhonchi
Cardiac: Regular Rhythm and S1/S2; Negative Murmur
GI: Soft, Nondistended, Normal Bowel Sounds and Tender (RUQ and midepigastrium)
Musculoskeletal: No Clubbing, No Cyanosis and No Edema
Skin: Warm
Neuro: Awake
[2024-12-16] MEDS: LOVENOX 40 MG SC (18:06)
[2024-12-16] MEDS: DESYREL 150 MG PO (21:22)
[2024-12-16] MEDS: LIPITOR 20 MG PO (21:22)
[2024-12-16 23:18] VITALS: BP 105/64
[2024-12-17] MEDS: MORPHINE SULFATE 2 MG IV ×3 (01:52→15:15)
[2024-12-17] MEDS: SYNTHROID 137 MCG PO (05:50)
[2024-12-17 07:00] VITALS: BP 139/82
[2024-12-17] MEDS: PROTONIX IV 40 MG IV ×2 (09:21→21:24)
[2024-12-17] MEDS: NSS (PRESERVATIVE FREE) 10 ML IV ×2 (09:22→21:24)
[2024-12-17] MEDS: ZETIA 10 MG PO (11:36)
[2024-12-17 11:40] VITALS: BP 158/79
[2024-12-17] MEDS: COZAAR 50 MG PO (11:41)
[2024-12-17] MEDS: ZOLOFT 200 MG PO (11:42)
[2024-12-17] MEDS: ORETIC 12.5 MG PO (11:42)
--- NOTE | 2024-12-17 13:10 | CM ---
Patient seen at bedside with physician on . Patient complained of pain and pending further work up per physician. CM will continue to follow for discharge planning needs.
Plan; home with no needs vs home with VN.
[2024-12-17] MEDS: LINZESS PO (13:35)
[2024-12-17 15:00] VITALS: BP 159/83
--- NOTE | 2024-12-17 15:13 | W.PN.HOSP.TC ---
Today's Communication/Plan
-
cont Linzess
Assessment / Plan
Assessment / Plan
pt is a 74 year old female
abdominal pain, nausea and vomiting--CT scan with no acute findings, no obstruction--lipase normal--EGD with gastritis no ulcer--GI suspects constipation and needs to take her Linzess regularly-- consideration for HIDA scan if no improvements-- full
liquids advance as tolerated--apprec GI
Essential hypertension- continue HCTZ and losartan
HLD- continue ezetimibe and simvastatin
hypothyroidism- continue levothyroxine
depression/anxiety-- continue sertraline and trazodone
DVT proph
Code status--FULL CODE
Anticipated Discharge: 24 - 48 hours
Subjective/Interval History
-
Date of Service: December 17, 2024
pt was c/o of abdominal pain this AM--ongoing
Objective Data
-
Vital Signs:
max temp for 24 hours
12/16/24
15:08
Temp 98.6 F
Vital Signs
Temp Pulse Resp BP Pulse Ox
98.1 F 68 20 158/79 96
12/17/24 11:40 12/17/24 11:41 12/17/24 11:40 12/17/24 11:41 12/17/24 11:40
I&O
12/16/24 12/17/24 12/18/24
06:59 06:59 06:59
Intake Total 240 / 240 780 / 780
Balance 240 / 240 780 / 780
Review of Systems
-
All other systems: Reviewed and negative
Physical Exam
-
General: Well Developed, Well Nourished and Appears in Distress
HEENT: Normocephalic and Atraumatic; Negative Oxygen
Respiratory: Clear to Auscultation; Negative Wheezes or Rhonchi
Cardiac: Regular Rhythm and S1/S2; Negative Murmur
GI: Soft and Tender (right upper quadrant and midepigastric pain)
Musculoskeletal: No Clubbing, No Cyanosis and No Edema
Neuro: Awake
Psych: Calm
[2024-12-17] MEDS: LINZESS 290 MCG PO (15:59)
[2024-12-17] MEDS: LOVENOX 40 MG SC (17:44)
[2024-12-17] MEDS: DESYREL 150 MG PO (21:25)
[2024-12-17] MEDS: LIPITOR 20 MG PO (21:25)
[2024-12-17 23:00] VITALS: BP 115/68
[2024-12-18] MEDS: SYNTHROID 137 MCG PO (05:32)
[2024-12-18 07:00] VITALS: BP 148/98
[2024-12-18 07:08] LABS: Hematocrit 36.2 % (37.0-47.0); Hemoglobin 12.1 g/dL (12.0-16.0); Mean Corp Hgb Conc. 33.4 g/dL (33.0-37.0); Mean Corpuscular Volume 85.2 fL (81.0-99.0); Platelet Count 150 10^3/uL (130-400); Red Cell Dist. Width 13.5 % (11.5-14.5)
[2024-12-18 07:36] LABS: Blood Urea Nitrogen 12 mg/dl (7-17); Calcium 8.4 mg/dl (8.4-10.2); Carbon Dioxide 28 mmol/L (22-30); Chloride 102 mmol/L (98-107); Estimated Creatinine Clearance 82 ml/min; Glucose 92 mg/dl (70-99); Magnesium 2.1 mg/dl (1.6-2.3); Potassium 3.4 mmol/L (3.5-5.1); Sodium 135 mmol/L (135-145); eGFR > 60.00
[2024-12-18] MEDS: KCL 40 MEQ PO (07:59)
[2024-12-18] MEDS: PROTONIX IV 40 MG IV (08:00)
[2024-12-18] MEDS: NSS (PRESERVATIVE FREE) 10 ML IV (08:00)
--- NOTE | 2024-12-18 13:21 | CM ---
Patient status changed per physician to Post proc/surgery recovery. Patient continues to complain of pain and pending GI assessment at this time. CM will continue to follow for discharge planning needs.
Plan; home with VN vs no needs.
[2024-12-18] MEDS: ZETIA 10 MG PO (13:33)
[2024-12-18] MEDS: ORETIC 12.5 MG PO (13:33)
[2024-12-18] MEDS: ZOLOFT 200 MG PO (13:33)
--- NOTE | 2024-12-18 13:40 | W.PN.HOSP.TC ---
Today's Communication/Plan
-
await GI
d/c if cleared by them
Assessment / Plan
Assessment / Plan
pt is a 74 year old female
abdominal pain, nausea and vomiting--CT scan with no acute findings, no obstruction--lipase normal--EGD with gastritis no ulcer-- HIDA scan normal--GI suspects constipation and needs to take her Linzess regularly-- advance diet as tolerated--apprec
GI
Essential hypertension- continue HCTZ and losartan
HLD- continue ezetimibe and simvastatin
hypothyroidism- continue levothyroxine
depression/anxiety-- continue sertraline and trazodone
DVT proph
Code status--FULL CODE
Anticipated Discharge: Today
Subjective/Interval History
-
Date of Service: December 18, 2024
pt has not moved bowels
Objective Data
-
Labs:
Laboratory Results
12/18/24 12/18/24
06:39 06:40
WBC 6.1
Hgb 12.1
Hct 36.2 L
Plt Count 150
Sodium 135
Potassium 3.4 L
Chloride 102
Carbon Dioxide 28
BUN 12
Creatinine 0.8
Glucose 92
Calcium 8.4
Vital Signs:
max temp for 24 hours
12/17/24
23:00
Temp 99.2 F
Vital Signs
Temp Pulse Resp BP Pulse Ox
98.4 F 76 18 148/98 97
12/18/24 07:00 12/18/24 07:00 12/18/24 07:00 12/18/24 07:00 12/18/24 11:17
I&O
12/17/24 12/18/24 12/19/24
06:59 06:59 06:59
Intake Total 780 / 780 700 / 700 960 / 960
Balance 780 / 780 700 / 700 960 / 960
Review of Systems
-
All other systems: Reviewed and negative
Abdomen/GI: Reports Abdominal Pain
Physical Exam
-
General: Well Developed, Well Nourished and No Apparent Distress
HEENT: Normocephalic and Atraumatic
Respiratory: Clear to Auscultation; Negative Wheezes or Rhonchi
Cardiac: Regular Rhythm and S1/S2; Negative Murmur
GI: Soft, Nontender (much improved), Nondistended and Normal Bowel Sounds
Musculoskeletal: No Clubbing, No Cyanosis and No Edema
Neuro: Awake
Psych: Calm
[2024-12-18] MEDS: COZAAR 50 MG PO (13:41)
[2024-12-18] MEDS: LINZESS PO (13:52)
[2024-12-18 15:00] VITALS: BP 162/89
[2024-12-18] MEDS: TYLENOL 650 MG PO (15:12)
[2024-12-18] MEDS: LOVENOX 40 MG SC (17:26)
--- NOTE | 2024-12-18 17:55 | W.PN.GI.CBS2 ---
Today's Communication / Plan
-
Okay to DC home patient is going to follow-up with surgeon as outpatient to discuss cholecystectomy and GI at [place] for second opinion and resume her outpatient laxative regimen at home and use enema as needed
Assessment / Plan
-
Assessment and plan
abdominal pain predominantly upper abdomen sometimes in the right upper quadrant could be related to possible biliary colic imaging so far has shown gallstones and otherwise unremarkable, LFTs are normal, lipase is normal, HIDA scan is negative for
acute cholecystitis
discussed with patient at length she is not happy with Dr. Roberson her outpatient GI and wants to seek a second opinion so I told her to follow-up with GI at [facility]
discussed with patient importance of taking her laxative regimen daily
Offered to give an enema here today but she would like to go home and I told her if she still does not have a bowel movement by tomorrow to use an enema and resume her Linzess
Also told her to follow-up with surgeon as outpatient to discuss possible cholecystectomy
DW
Subjective
Subjective
Date of Service: December 18, 2024
Patient's pain is improving, reviewed HIDA scan is negative for cholecystitis and also negative for CBD obstruction.
She has not had a bowel movement yet
Objective
Data Reviewed
Laboratory Data:
Laboratory Results
12/18/24 06:39
12/18/24 06:40
Laboratory Results
Magnesium 2.1 mg/dl (1.6-2.3) 12/18/24 06:40
Total Bilirubin 0.9 mg/dl (0.2-1.3) 12/15/24 12:09
AST 30 U/L (14-36) 12/15/24 12:09
ALT 33 U/L (0-35) 12/15/24 12:09
Alkaline Phosphatase 74 U/L (38-126) 12/15/24 12:09
Lipase 85 U/L (23-300) 12/15/24 12:09
Vital Signs and I&O:
Vital Signs
Temp Pulse Resp BP Pulse Ox
99.0 F 72 18 162/89 95
12/18/24 15:00 12/18/24 15:00 12/18/24 15:00 12/18/24 15:00 12/18/24 15:00
I&O
12/17/24 12/18/24 12/19/24
06:59 06:59 06:59
Intake Total 780 / 780 700 / 700 1440 / 1440
Balance 780 / 780 700 / 700 1440 / 1440
Physical Exam
Physical Exam
Cardiology: Normal Sinus Rhythm
GI: Soft, Non Distended, Normal Bowel Sounds and Other (Very mild upper abdomen tenderness)
--- NOTE | 2024-12-18 18:02 | W.DCSUMMARY ---
Discharge Summary
Discharge Data
Date of Admission: 12/15/24
Date of Discharge: 12/18/24
-
Pending Results: No
Hospital Course
Primary care physician : Jj Wiley
Principal Discharge diagnosis : Abdominal pain with nausea and vomiting
Chronic Discharge diagnosis : Essential hypertension, hyperlipidemia, hypothyroidism, depression/anxiety
Hospital Course : Patient is a 74-year-old female who presented with complaints of abdominal pain, nausea and vomiting. She stated that her last normal bowel movement was Saturday prior to admission. She feels pain is similar to previous episodes
of small bowel obstruction. She also reported fever and chills at home. Patient was admitted.
Problem #1: Abdominal pain with nausea and vomiting. Patient felt that this was similar to her small bowel obstructions. CAT scans done in the emergency department showed no acute findings, no obstruction. Lipase was checked and was normal.
Patient did undergo an EGD which showed gastritis but no ulcer. Multiple scans have shown gallstones but her HIDA scan was normal. Biliary colic and constipation are still high on the list for possible causes. Patient did double her Linzess dose
and did not have a bowel movement. Patient is agreeable to go home and take an enema at home and resume her Linzess. She wishes to follow-up with a different GI doctor for second opinion and will likely follow-up with surgery as an outpatient for
possible elective cholecystectomy. Patient is tolerating her diet. She has been cleared for discharge by GI.
Problem #2: All other medical issues. These include Essential hypertension, hyperlipidemia, hypothyroidism, depression/anxiety. These medical issues were stable during her hospital stay. Medications were continued as able.
Patient is stable for discharge home at this time. If there are any questions regarding this dictation or her hospital stay, please do not hesitate to call. Our office number is [phone].
Important imaging findings :
HIDA SCAN Impression: No scintigraphic evidence of cystic duct or common bile duct obstruction.
CT SCAN ABDOMEN/PELVIS IMPRESSION:
1. No acute findings within the abdomen and pelvis.
2. No evidence for small bowel obstruction. Unremarkable appendix. No free fluid within the abdomen or pelvis.
3. Cholelithiasis.
Procedure findings :
EGD Findings:
- A small hiatal hernia was present.
- The examined esophagus was normal. Biopsies were taken with a
cold forceps for histology.
- Localized moderately erythematous mucosa without bleeding was
found in the gastric antrum. Biopsies were taken with a cold forceps
for Helicobacter pylori testing.
- The examined duodenum was normal. Biopsies for histology were
taken with a cold forceps for evaluation of celiac disease.
Impression:
- Small hiatal hernia.
- Normal esophagus. Biopsied.
- Erythematous mucosa in the antrum. Biopsied.
- Normal examined duodenum. Biopsied.
Discharge Plan
-
Patient Disposition: Home (Routine Discharge)
Discharge Diagnosis/Procedures: Abdominal pain with nausea and vomiting thought to be due to constipation, essential hypertension, hyperlipidemia, hypothyroidism, depression/anxiety
Condition: Good
Diet: As tolerated and Regular
Activity: As tolerated
Driving Restrictions: As prior to admission
Bathing Restrictions: None
Referrals:
Jj Wiley MD [Family Provider] - in less than 1 week
Fela Farmer MD [Active, Gastroenterology] - in one month
Prescriptions:
New
magnesium hydroxide [Milk of Magnesia] 400 mg/5 mL Suspension
30 ml PO HSPRN PRN (Reason: constipation) Qty: 0 0RF
polyethylene glycol 3350 17 gram Powder In Packet
17 g PO BID Qty: 0 0RF
Continued
sertraline 100 MG tablet
200 mg PO DAILY@1200
ezetimibe 10 MG tablet
10 mg PO DAILY@1200
simvastatin 80 MG tablet
40 mg PO HS
losartan 50 mg tablet
50 mg PO DAILY@1200
levothyroxine 137 mcg tablet
137 mcg PO DAILY@0700
trazodone 100 mg tablet
150 mg PO HS
albuterol sulfate 90 mcg/actuation HFA aerosol inhaler
2 inh INHALATION Q6HPRN PRN (Reason: wheezing )
hydrochlorothiazide 12.5 mg tablet
12.5 mg PO DAILY@1200
Linzess 72 mcg capsule
72 mcg PO DAILY@1200
Discharge Orders:
Discharge Patient (As Directed); Ordered 12/18/24
Ordered By: Raquel Bender
Discharge Date and Time
Print Language: SAMI
== END 2024-12-18 18:40 | disposition home or self-care (01) ==
LOC: SDS 17:20
PROVIDERS: Internal Medicine; Nurse Practitioner Family; EMERGENCY PHYSICIAN Student in an Organized Health Care Education/Training Program; FAMILY PHYSICIAN Internal Medicine
DX: K31.89 Other diseases of stomach and duodenum (principal); K56.600 Partial intestinal obstruction, unspecified as to cause; K44.9 Diaphragmatic hernia without obstruction or gangrene; R10.84 Generalized abdominal pain
CPT/HCPCS: 43239; 74177; 78226; 80048; 80053; 81003; 81015; 83690; 83735; 85025; 85027; 88305; 88342; 96361; 96374; 96375; 96376; 99284; A9537; G0378; Q9967